=== PATIENT | female | born 1930 | race Caucasian/White ===

== ENCOUNTER 2018-06-16 08:49 | Emergency (ER) | payer BC ==
[~2018-06-16] VITALS: Ht 157.5 cm; Wt 83.3 kg
[2018-06-16 08:51] VITALS: TEMP 36.5; Ht 157.5 cm; Wt 83.3 kg
[2018-06-16] MEDS ORDERED: DiphenhydrAMINE HCL 50 MG/ML VIAL IV STA (09:07)
[2018-06-16] MEDS ORDERED: METHYLPREDNISOLONE 125 MG VIAL IV STA (09:07)
[2018-06-16] MEDS ORDERED: RANITIDINE HCL 50 MG/100 ML D5W IV STA (09:07)
[2018-06-16] MEDS ORDERED: AMIO200T7 PO (10:10)
[2018-06-16] MEDS ORDERED: AMLO2.5T PO (10:10)
[2018-06-16] MEDS ORDERED: HYDR25TA4 PO (10:10)
[2018-06-16] MEDS ORDERED: SYMIN160 INH (10:10)
[2018-06-16] MEDS ORDERED: CHOL20005 PO (10:10)
[2018-06-16] MEDS ORDERED: ATOR-24 PO (10:10)
[2018-06-16] MEDS ORDERED: DTRSR/10 PO (10:10)
[2018-06-16] MEDS ORDERED: ASPI81TA28 PO (10:10)
[2018-06-16] MEDS ORDERED: METO25TA56 PO (10:10)
[2018-06-16] MEDS ORDERED: APIX1TAB3 PO (10:10)
[2018-06-16] MEDS ORDERED: GLC5 PO (10:10)
[2018-06-16] MEDS ORDERED: GABA-112 PO (10:10)
[2018-06-16] MEDS ORDERED: SENN-61 PO (10:10)
[2018-06-16] MEDS ORDERED: DICL1GEL34 (10:10)
[2018-06-16] MEDS ORDERED: PRED20TA PO (11:19)
--- NOTE | 2018-06-16 11:20 | EMERGENCY ROOM VISIT NOTE ---
History First contact with patient: 09:02 Chief Complaint: ALLERGIC REACTION Stated Complaint: HIVES,SWELLING IN MOUTH AND THROAT Nursing Triage Summary: Pt developed angioedema from Lisinopril one month ago, stopped taking it at that time. Has not taken it since then, today woke up with similar sx of toung edema , swollen throat, and generalized hives. Pt hypoxic in triage, 87% on room air- normally wears 3L O2 chronic, but did not wear it today. History of Present Illness The patient is a 87 year old female who presents to the Emergency Room with complaints of some swelling of her tongue. The patient states that about a month ago she had similar symptoms and it was felt to be related to lisinopril. She has been off lisinopril for at least a month. She has had at least 1 or 2 other episodes since that time. Today she is traveling through the area heading back to [place]. She noticed some swelling of the tongue and came in for evaluation. She did take some Benadryl prior to arrival. Nothing else has made her symptoms better or worse. She has had no other allergic contacts. She also felt that there was some swelling or hives to the abdominal region. 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 Social History Smoking Status: Former Smoker Current/Historical Medications Scheduled Amiodarone Hcl (Pacerone), 200 MG PO DAILY Amlodipine (Norvasc), 2.5 MG PO DAILY Apixaban (Eliquis), 5 MG PO BID Aspirin (Aspirin Ec), 81 MG PO DAILY Atorvastatin (Lipitor), 40 MG PO DAILY Budesonide/Formoterol Fumarate (Symbicort 160/4.5 Inhaler ), 2 PUFFS INH BID Cholecalciferol (Vitamin D3), 2,000 UNITS PO DAILY Gabapentin (Neurontin), 100 MG PO TID Glipizide (Glipizide), 5 MG PO BID Hydrochlorothiazide (Hctz), 25 MG PO DAILY Metoprolol Tartrate (Lopressor) (Lopressor), 25 MG PO BID Oxybutynin Chloride (Oxybutynin Chloride ER), 10 MG PO DAILY Senna (Senokot), 8.6 MG PO BID Miscellaneous Medications Diclofenac Sodium (Topical) (Diclofenac Sodium) Physical Exam Vital Signs Date Time Temp Pulse Resp B/P (MAP) Pulse Ox O2 Delivery O2 Flow Rate FiO2 06/16/18 10:07 74 18 188/92 94 Nasal Cannula 3.0 06/16/18 09:04 61 06/16/18 08:51 36.5 72 18 180/76 87 Nasal Cannula Physical Exam CONSTITUTIONAL/VITAL SIGNS: Reviewed / noted above. GENERAL: Non-toxic in appearance. INTEGUMENTARY: Warm, dry, and [place]. HEAD: Normocephalic. EYES: without scleral icterus or trauma. ENT/OROPHARYNX: clear and moist. There is some mild swelling to the tongue. There is also some mild hives to the abdominal region left and right. LYMPHADENOPATHY/NECK: Is supple without lymphadenopathy or meningismus. RESPIRATORY: Lungs clear and equal. CARDIOVASCULAR: Regular rate and rhythm. GI/ABDOMEN: Soft and nontender. No organomegaly or pulsatile mass. No rebound or guarding. Normal bowel sounds. EXTREMITIES: Warm and well perfused. BACK: No CVA tenderness. NEUROLOGICAL: Intact without focal deficits. PSYCHIATRIC: normal affect. MUSCULOSKELETAL: Normally developed with good muscle tone. TRIAGE NURSING DOCUMENTATION REVIEWED. Medical Decision & Procedures Medications Administered Medications (Trade) Dose Ordered Sig/Frieda Route Start Time Stop Time Status Last Admin Dose Admin Ranitidine HCl (zANTac IV) 50 mg NOW STAT IV 06/16/18 09:07 06/16/18 09:09 DC 06/16/18 09:35 50 MG Methylprednisolone Sodium Succinate (Solu-Medrol IV) 125 mg NOW STAT IV 06/16/18 09:07 06/16/18 09:09 DC 06/16/18 09:14 125 MG Diphenhydramine HCl (Benadryl Inj) 25 mg NOW STAT IV 06/16/18 09:07 06/16/18 09:09 DC 06/16/18 09:14 25 MG ED Course The patient was treated with IV Zantac, IV Benadryl and IV Solu-Medrol Medical Decision There is no evidence of impending airway obstruction, anaphylaxis or serious infection. There is an 87-year-old female who presents with swelling of her tongue and some hives in the abdominal region. She has had this previously. It was felt to be related to lisinopril. She has not been on lisinopril for a month. The patient felt like she was having some tongue swelling today and came in for evaluation. She is traveling through the area. She was treated with IV Benadryl, IV Solu-Medrol and IV Zantac. She states that she is feeling better. The hives have resolved in the abdominal region. Her tongue swelling appears to have improved slightly and certainly not worsened. She is felt to be stable for discharge. Prescription for prednisone given. She will continue Benadryl. Medication Reconcilliation Current Medication List: was personally reviewed by me Blood Pressure Screening Patient's blood pressure: Elevated blood pressure Blood pressure disposition: Referred to PCP Impression Primary Impression: Mild tongue swelling Additional Impression: Hives Departure Information Dispostion Home / Self-Care Prescriptions Prednisone (Prednisone) 20 Mg Tab 2 TAB PO DAILY for 4 Days, #8 TAB Prov: Indio Jarvis D.O. 06/16/18 Referrals No Doctor, Assigned (PCP) Patient Instructions [facility] Additional Instructions Take Benadryl 25-50 mg every 6 hours as needed for swelling or hives or itching. Prednisone as prescribed. Follow-up with your doctor for further care and evaluation in 1-5 days. Return to the emergency department for worsening or new symptoms or any concerns. You have been examined and treated today on an emergency basis only. This is not a substitute for, or an effort to provide, complete comprehensive medical care. It is impossible to recognize and treat all injuries or illnesses in a single emergency department visit. It is therefore important that you follow up closely with your doctor. Call as soon as possible for an appointment. Have your blood pressure rechecked by your doctor sometime this week. Problem Qualifiers
[2018-06-16 11:47] VITALS: BP 156/89; PULSE 78; O2SAT 96
== END 2018-06-16 11:49 | disposition home or self-care (01) ==
LOC: C.EDB 08:50
DX: J39.2 Other diseases of pharynx (principal); L50.9 Urticaria, unspecified; Z87.891 Personal history of nicotine dependence; Z79.82 Long term (current) use of aspirin